=== PATIENT | male | born 1985 | race Caucasian/White ===

== ENCOUNTER 2021-02-10 08:32 | Emergency (ER) | payer SELFPAY ==
[2021-02-10 09:05] LABS: #Eosinphils 0.2 10x3/uL (0.0-0.5); #Monocytes 0.6 10x3/uL (0.0-1.1); #Neutrophils 7.4 10x3/uL (1.5-8.4); %Basophils 0.3 % (0.0-2.0); %Eosinophils 1.9 % (0.0-6.0); %Lymphocytes 23.2 % (18.0-47.0); %Monocytes 5.8 % (0.0-10.0); %Neutrophils 68.3 % (40.0-75.0); Hemoglobin 15.6 g/dL (13.5-17.5); Mean Corpuscular HGB CONC 32.1 g/dL (32.0-36.0); Mean Corpuscular Hemoglobin 27.3 pg (27.0-33.0); Mean Platelet Volume 9.4 fl (7.4-10.4); Platelet Count 291 10x3/uL (150-450); RBC Distribution Width 12.8 % (11.5-14.5); Red Blood Cell (RBC) Count 5.72 10x6/uL (4.32-5.72); White Blood Cell (WBC) Count 10.9 10x3/uL (3.5-10.5)
[2021-02-10] MEDS ORDERED: Ketorolac Tromethamine 30 MG/ML VIAL ONE (09:16)
[2021-02-10] MEDS ORDERED: Aspirin Chewable 81 MG TAB ONE (09:16)
[2021-02-10 09:29] LABS: ALT (SGPT) 28 U/L (8-55); AST (SGOT) 22 U/L (5-34); Alkaline Phosphatase 77 U/L (40-110); Anion Gap 18 mmol/L (10-20); BUN (Urea Nitrogen) 14 mg/dL (8.9-20.6); Bilirubin, Total 0.5 mg/dL (0.2-1.2); CK (CPK) 114 U/L (30-200); Calc. Creatinine Clearance 0 mL/min (70-130); Calcium 9.8 mg/dL (7.8-10.44); Carbon Dioxide 25 mmol/L (22-29); Chloride 105 mmol/L (98-107); Globulin 2.4 g/dL (2.4-3.5); Glucose 98 mg/dL (70-105); Lipase 38 U/L (8-78); Potassium 4.4 mmol/L (3.5-5.1); Protein, Total 7.4 g/dL (6.0-8.3); Sodium 144 mmol/L (136-145)
== END 2021-02-10 09:50 | disposition home or self-care (01) ==
LOC: CSHERS 08:32
DX: R07.89 Other chest pain (principal); Z87.891 Personal history of nicotine dependence
CPT/HCPCS: 71046; 80053; 82550; 83690; 84484; 85025; 93005; 96374; J1885

== ENCOUNTER 2022-07-18 23:42 | Emergency (ER) | payer OTHER, SELFPAY ==
[2022-07-19] MEDS ORDERED: Ondansetron PF 4 MG/2 ML Vial ONE (01:12)
[2022-07-19 01:35] LABS: #Monocytes 1.2 10x3/uL (0.0-1.1); #Neutrophils 14.8 10x3/uL (1.5-8.4); %Basophils 0.2 % (0.0-2.0); %Eosinophils 0.1 % (0.0-6.0); %Lymphocytes 3.9 % (18.0-47.0); %Monocytes 7.3 % (0.0-10.0); %Neutrophils 87.8 % (40.0-75.0); Hemoglobin 13.3 g/dL (13.5-17.5); Mean Corpuscular HGB CONC 33.6 g/dL (32.0-36.0); Mean Corpuscular Hemoglobin 28.7 pg (27.0-33.0); Mean Corpuscular Volume 85.3 fl (81.2-95.1); Mean Platelet Volume 8.8 fl (7.4-10.4); Platelet Count 291 10x3/uL (150-450); RBC Distribution Width 13.1 % (11.5-14.5); Red Blood Cell (RBC) Count 4.64 10x6/uL (4.32-5.72); White Blood Cell (WBC) Count 16.9 10x3/uL (3.5-10.5)
[2022-07-19 01:50] LABS: ALT (SGPT) 38 U/L (8-55); AST (SGOT) 38 U/L (5-34); Acetaminophen Less than 10.0 mcg/mL (10.0-30.0); Albumin 4.4 g/dL (3.5-5.0); Alcohol 51 mg/dL (Less than 10); Alkaline Phosphatase 57 U/L (40-110); Anion Gap 15 mmol/L (10-20); BUN (Urea Nitrogen) 12 mg/dL (8.9-20.6); Bilirubin, Total 0.3 mg/dL (0.2-1.2); Calc. Creatinine Clearance 0 mL/min (70-130); Calcium 8.2 mg/dL (7.8-10.44); Carbon Dioxide 23 mmol/L (22-29); Chloride 107 mmol/L (98-107); Estimated GFR 95; Globulin 2.2 g/dL (2.4-3.5); Glucose 71 mg/dL (70-105); Potassium 3.8 mmol/L (3.5-5.1); Protein, Total 6.6 g/dL (6.0-8.3); Salicylate Less than 8.0 mg/dL (15.0-30.0); Sodium 141 mmol/L (136-145)
== END 2022-07-19 05:40 | disposition home or self-care (01) ==
LOC: CSHERS 23:42
DX: T40.711A Poisoning by cannabis, accidental (unintentional), initial encounter (principal); F10.129 Alcohol abuse with intoxication, unspecified; R41.82 Altered mental status, unspecified
CPT/HCPCS: 70450; 80053; 80307; 85025; 93005; 96374; J2405

== ENCOUNTER 2022-11-02 23:00 | Emergency (ER) | payer OTHER | END 2022-11-02 23:26 | disposition home or self-care (01) | LOC: CSHERS 23:00 | DX: F19.90 Other psychoactive substance use, unspecified, uncomplicated (principal) | CPT/HCPCS: 99284 ==

== ENCOUNTER 2024-11-10 08:22 | Emergency (ER) | payer OTHER, SELFPAY ==
[2024-11-10] MEDS ORDERED: predniSONE 20 MG TAB ONE (09:14)
[2024-11-10] MEDS ORDERED: Albuterol 2.5 MG (3 mL) NEB ONE (09:26)
== END 2024-11-10 11:49 | disposition home or self-care (01) ==
LOC: CSHERS 08:22
DX: R06.02 Shortness of breath (principal); R05.9 Cough, unspecified
CPT/HCPCS: 71046; 93005; 93010; 94640; J7512; J7611